=== PATIENT | male | born 2000 | race Caucasian/White ===

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

== ENCOUNTER 2021-12-19 00:16 | Emergency (ER) | payer OTHER ==
[~2021-12-19] VITALS: Ht 190.5 cm; Wt 123.0 kg
[2021-12-19] MEDS ORDERED: LIDOCAINE W/EPINEPHRINE 1% 20ML VIAL SC ONE (06:35)
[2021-12-19 08:00] VITALS: BP 142/98
== END 2021-12-19 08:04 | disposition home or self-care (01) ==
LOC: M ED 00:16
DX: S51.012A Laceration without foreign body of left elbow, initial encounter (principal); W22.8XXA Striking against or struck by other objects, initial encounter; Y99.0 Civilian activity done for income or pay

== ENCOUNTER → 2023-06-28 | Outpatient (CLI) | payer OTHER | LOC: M WUC 13:50 | PROVIDERS: ATTEND Physician Assistant Medical | DX: M54.14 Radiculopathy, thoracic region (principal) ==

== ENCOUNTER 2024-10-30 07:40 | Day surgery (SDC) | payer BC, OTHER ==
[~2024-10-30] VITALS: Ht 193 cm; Wt 136.7 kg
[~2024-10-30 07:40] MED LIST: AZEL1SPR3; FLUTISP PO; PROP60CA PO
[2024-10-30] MEDS ORDERED: ONDANSETRON 4MG 2ML VIAL As Ordered ONE (08:10)
[2024-10-30] MEDS ORDERED: ROCURONIUM BROMIDE 50MG/5ML VIAL As Ordered ONE (08:10)
[2024-10-30] MEDS ORDERED: MONT10TA97 PO (08:10)
[2024-10-30] MEDS ORDERED: SUGAMMADEX SODIUM 500 MG/5 ML VIAL As Ordered ONE (08:10)
[2024-10-30] MEDS ORDERED: dexAMETHasone 4 MG/ML 1 ML VIAL As Ordered ONE (08:10)
[2024-10-30] MEDS ORDERED: LIDOCAINE 2% 100 MG/5 ML SDV (FOR ANES.) As Ordered ONE (08:10)
[2024-10-30] MEDS ORDERED: ACETAMINOPHEN 1000MG/100ML IV BAG As Ordered ONE (10:10)
[2024-10-30] MEDS: LIDOCAINE W/EPINEPHrine 1% 20 ML VIAL As Ordered ONE (10:17)
[2024-10-30] MEDS: METHYLENE BLUE 0.5% (5 MG/ML) 10 ML AMP As Ordered ONE (10:17)
[2024-10-30] MEDS: OXYMETAZOLINE 0.05% NASAL SPRAY As Ordered ONE (10:17)
[2024-10-30] MEDS: TRANEXAMIC ACID 100 MG/ML 10ML VIAL As Ordered ONE (10:33)
[2024-10-30] MEDS ORDERED: LABETALOL 100 MG/20 ML VIAL As Ordered ONE (11:02)
[2024-10-30] MEDS ORDERED: HYDROMORPHONE HCL 0.5 MG/0.5 ML SYRINGE IV PRN (11:40)
[2024-10-30] MEDS ORDERED: diphenhydrAMINE 50 MG/ML VIAL IV PRN (11:40)
[2024-10-30] MEDS ORDERED: LR 1,000 ML IV SCH (11:40)
[2024-10-30 12:20] VITALS: BP 143/96; TEMP 96.8; O2SAT 96
== END 2024-10-30 12:57 | disposition home or self-care (01) ==
LOC: M SDC 07:40
PROVIDERS: ATTEND Otolaryngology
DX: J34.2 Deviated nasal septum (principal); J34.3 Hypertrophy of nasal turbinates; J34.89 Other specified disorders of nose and nasal sinuses; J95.71 Accidental puncture and laceration of a respiratory system organ or structure during a respiratory system procedure; J32.9 Chronic sinusitis, unspecified; R09.81 Nasal congestion; R51.9 Headache, unspecified; Z68.37 Body mass index [BMI] 37.0-37.9, adult; Z79.899 Other long term (current) drug therapy
CPT/HCPCS: 30140; 30520; 31255; 31267; 61782; 88305; C1889; J0131; J1100; J1920; J2405; Q9968